=== PATIENT | female | born 1985 | race African-American/Black ===

== ENCOUNTER 2017-06-29 17:11 | Emergency (ER) | payer OTHER ==
[~2017-06-29] VITALS: Ht 160 cm; Wt 68.1 kg
[2017-06-29 17:13] VITALS: BP 129/74
[2017-06-29] MEDS ORDERED: SERT50TA PO (18:03)
== END 2017-06-29 19:06 | disposition home or self-care (01) ==
LOC: ED 18:40
DX: M54.12 Radiculopathy, cervical region (principal); G89.29 Other chronic pain; M54.2 Cervicalgia
CPT/HCPCS: 93005; 99283; J7512